=== PATIENT | male | born 1985 | race American Indian/Alaskan Native ===

== ENCOUNTER 2017-03-12 23:48 | Observation (INO) | payer MEDICAID, OTHER ==
[2017-03-13 00:23] VITALS: BMI 21.9
[2017-03-13] MEDS ORDERED: TDAP Vaccine 0.5 mL Syr IM ONE (00:35)
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
[2017-03-13] MEDS ORDERED: Sodium Chloride 0.9% 1,000 ML IV STA (02:23)
[2017-03-13] MEDS ORDERED: Multivitamin (MVI) 10 ML, Thiamine 100 MG, Folic Acid 1 MG in Sodium Chloride 0.9% 1,00... IV ONE ×2 (02:35→06:21)
[2017-03-13 03:31] LABS: BASO # 0.02 K/mm3 (0.0-2.0); BASO % 0.3 % (0.0-3.0); EOS # 0.1 (0.0-0.7); EOS % 1.4 % (1.5-5.0); GRAN # 3.35 (1.4-6.5); GRAN % 50.6 % (50.0-68.0); HEMATOCRIT 40.7 % (42.0-52.0); LYMPH # 2.8 (1.2-3.4); MEAN CELL VOLUME 97.1 fl (80.0-105.0); MEAN CORPUSCULAR HEMOGLOBIN 33.4 pg (25.0-35.0); MEAN CORPUSCULAR HGB CONC 34.4 g/dl (31.0-37.0); MEAN PLATELET VOLUME 10.1 fl (7.0-11.0); MONO # 0.4 (0.1-0.6); MONO % 5.7 % (1.0-6.0); RED CELL DISTRIBUTION WIDTH 14.2 % (11.5-14.5); WHITE BLOOD COUNT 6.6 10^3/ul (4.5-11.0)
[2017-03-13 03:39] LABS: ALB/GLOB RATIO 1.7 (1.1-1.8); ALKALINE PHOSPHATASE 52 U/L (38-133); ALT/SGPT 94 U/L (7-56); AST/SGOT 80 U/L (15-59); BILIRUBIN,TOTAL 0.5 mg/dL (0.2-1.3); BLOOD UREA NITROGEN 8 mg/dL (7-21); CALCIUM 9.3 mg/dL (8.4-10.5); CARBON DIOXIDE 27 mmol/L (21-33); CHLORIDE 103 mmol/L (98-107); GFR AFRICAN-AMERICAN > 60; GLUCOSE,RANDOM 79 mg/dL (70-110); POTASSIUM 3.8 mmol/L (3.6-5.0); SODIUM 142 mmol/L (132-148); TOTAL PROTEIN 6.8 g/dL (5.8-8.3)
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
[2017-03-13 16:00] VITALS: TEMP 98.4
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
[2017-03-14] MEDS ORDERED: Pantoprazole 40 mg EC Tab PO SCH (06:00)
[2017-03-14 07:03] LABS: HEMATOCRIT 42.3 % (42.0-52.0); MEAN PLATELET VOLUME 10.4 fl (7.0-11.0); RED CELL DISTRIBUTION WIDTH 13.7 % (11.5-14.5); WHITE BLOOD COUNT 4.4 10^3/ul (4.5-11.0)
[2017-03-14 07:06] LABS: ALB/GLOB RATIO 1.4 (1.1-1.8); ALKALINE PHOSPHATASE 59 U/L (38-133); ALT/SGPT 92 U/L (7-56); AST/SGOT 75 U/L (15-59); BILIRUBIN,TOTAL 1.3 mg/dL (0.2-1.3); BLOOD UREA NITROGEN 9 mg/dL (7-21); CALCIUM 9.3 mg/dL (8.4-10.5); CARBON DIOXIDE 26 mmol/L (21-33); CHLORIDE 102 mmol/L (98-107); GFR AFRICAN-AMERICAN > 60; GLUCOSE,RANDOM 78 mg/dL (70-110); MAGNESIUM 1.8 mg/dL (1.7-2.2); POTASSIUM 3.9 mmol/L (3.6-5.0); SODIUM 138 mmol/L (132-148); TOTAL PROTEIN 7.2 g/dL (5.8-8.3)
[2017-03-14] MEDS ORDERED: Multivitamin With Minerals Tab PO SCH (08:00)
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
[2017-03-14 08:25] VITALS: BP 139/90; PULSE 62; RESP 20; O2SAT 98
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
== END 2017-03-14 13:53 | disposition home or self-care (01) ==
LOC: ED 23:48 → ERH 03-13 02:36 → 5RNO 03-13 05:33 → INTOOBSV 03-13 13:27 → OBSVTOIN 03-13 13:27
PROVIDERS: ADMIT Internal Medicine; ATTEND Hospitalist
DX: S02.31XA Fracture of orbital floor, right side, initial encounter for closed fracture (principal); S00.03XA Contusion of scalp, initial encounter; F10.129 Alcohol abuse with intoxication, unspecified; S01.81XA Laceration without foreign body of other part of head, initial encounter; G40.909 Epilepsy, unspecified, not intractable, without status epilepticus; F17.210 Nicotine dependence, cigarettes, uncomplicated; H53.8 Other visual disturbances; J45.909 Unspecified asthma, uncomplicated; F12.90 Cannabis use, unspecified, uncomplicated; K02.9 Dental caries, unspecified; Y90.7 Blood alcohol level of 200-239 mg/100 ml; Y04.0XXA Assault by unarmed brawl or fight, initial encounter; Y93.9 Activity, unspecified; Y92.9 Unspecified place or not applicable
CPT/HCPCS: 36415; 70450; 70486; 80053; 80074; 83735; 84100; 85025; 85027; 90471; 90715; 96365; 99285; G0378; G0480; J3411; J7040